=== PATIENT | male | born 2000 | race Two or more races ===

== ENCOUNTER 2022-11-24 04:30 | Emergency (ER) | payer OTHER ==
[~2022-11-24] VITALS: Ht 182.9 cm; Wt 100.0 kg
[2022-11-24 06:59] VITALS: BP 136/71
[2022-11-24] MEDS ORDERED: KETOROLAC TROMETH 60MG/2ML VIAL IM ONE (07:15)
[2022-11-24] MEDS ORDERED: IBUP800T27 PO (07:50)
[2022-11-24] MEDS ORDERED: METH750T22 PO (07:50)
== END 2022-11-24 07:36 | disposition home or self-care (01) ==
LOC: EDBD 04:30 → ER 04:30
DX: S16.1XXA Strain of muscle, fascia and tendon at neck level, initial encounter (principal); S46.911A Strain of unspecified muscle, fascia and tendon at shoulder and upper arm level, right arm, initial encounter; V89.2XXA Person injured in unspecified motor-vehicle accident, traffic, initial encounter; Y93.89 Activity, other specified; Y92.89 Other specified places as the place of occurrence of the external cause; Y99.8 Other external cause status
CPT/HCPCS: 72040; 73030; 96372; 99284; J1885